=== PATIENT | male | born 1955 | race African-American/Black ===

== ENCOUNTER 2018-01-15 12:12 | Emergency (ER) | payer MEDICAID ==
[~2018-01-15] VITALS: Ht 177.8 cm; Wt 72.6 kg
[2018-01-15] MEDS ORDERED: Morphine Sulfate 4mg/ml Inj (IV USE ONLY) IVP ONE ×2 (12:15→13:15)
[2018-01-15] MEDS ORDERED: Isovue-300 100ml vial INJ PRN (12:15)
[2018-01-15 12:30] VITALS: BP 148/76
[2018-01-15] MEDS ORDERED: ceFAZolin 1gm/50ml Premix 50 ML IV ONE (12:30)
[2018-01-15 12:36] LABS: BASOPHILS % (AUTO) 1.4 % (0.0-2.0); HEMATOCRIT 44.5 % (42.0-52.0); HEMOGLOBIN 14.2 G/DL (14.2-18.0); LYMPHOCYTES % (AUTO) 29.2 % (20.0-45.0); MEAN CORPUSCULAR VOLUME 87 FL (80-99); MONOCYTES % (AUTO) 8.8 % (1.0-10.0); NEUTROPHILS % (AUTO) 59.6 % (45.0-75.0); PLATELET COUNT 253 K/UL (150-450); RED BLOOD COUNT 5.13 M/UL (4.70-6.10); RED CELL DISTRIBUTION WIDTH 12.6 % (11.6-14.8); WHITE BLOOD COUNT 9.3 K/UL (4.8-10.8)
[2018-01-15 12:43] LABS: ANION GAP 11 mmol/L (5-15); BLOOD UREA NITROGEN 10 mg/dL (7-18); CALCIUM 9.4 MG/DL (8.5-10.1); CARBON DIOXIDE 30 MMOL/L (21-32); CHLORIDE 105 MMOL/L (98-107); CREATININE 1.2 MG/DL (0.55-1.30); POTASSIUM 3.2 MMOL/L (3.5-5.1); SODIUM 145 MMOL/L (136-145)
[2018-01-15 12:47] LABS: ALANINE AMINOTRANSFERASE 22 U/L (12-78); ALBUMIN 3.6 G/DL (3.4-5.0); ALKALINE PHOSPHATASE 97 U/L (46-116); ASPARTATE AMINO TRANSFERASE 19 U/L (15-37); BILIRUBIN,TOTAL 0.3 MG/DL (0.2-1.0)
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
[2018-01-15 14:42] VITALS: BP 110/64
[2018-01-15 16:06] VITALS: BP 135/87
[2018-01-15 16:40] VITALS: BP 135/87
--- NOTE | 2018-01-16 18:02 | Cardiology Report ---
APPROVED REPORT EKG Measurement Heart [id number] Sinus tachycardia Cannot rule out Anterior infarct, age undetermined Abnormal ECG
== END 2018-01-15 16:40 | disposition short-term general hospital (02) ==
LOC: EMR 13:40
DX: S31.119A Laceration without foreign body of abdominal wall, unspecified quadrant without penetration into peritoneal cavity, initial encounter (principal); S71.112A Laceration without foreign body, left thigh, initial encounter; S36.530A Laceration of ascending [right] colon, initial encounter; W26.9XXA Contact with unspecified sharp object(s), initial encounter; Y93.9 Activity, unspecified; Y92.9 Unspecified place or not applicable; F17.210 Nicotine dependence, cigarettes, uncomplicated
CPT/HCPCS: 36415; 71045; 74177; 80053; 80329; 83690; 85025; 85610; 85730; 86850; 86900; 86901; 93005; 96365; 96367; 96375; 96376; 99291; J0690; J2270; J2405; Q9967